=== PATIENT | female | born 1945 | race Caucasian/White ===

== ENCOUNTER 2016-12-15 06:26 | Inpatient (IN) ==
--- NOTE | 2016-12-14 16:00 | Discharge Summary ---
<Alexandra Howell - Last Filed: 12/14/16 16:04> Date of Encounter: 12/14/16 - Discharge Diagnosis (1) Arthritis of left knee Priority: Primary Status: Chronic (2) Hypertension Priority: Secondary Status: Chronic Qualifiers: Hypertension type: essential hypertension Qualified Code(s): I10 - Essential (primary) hypertension (3) History of CVA (cerebrovascular accident) Priority: Secondary Status: Chronic - Discharge Medications Home Medications: Aspirin [Lo-Dose Aspirin EC] 81 mg PO HS 12/15/16 [History] Enoxaparin [Lovenox] 30 mg SQ BID #10 syringe 12/15/16 [Rx] HYDROcodone/Acet 7.5/325 mg [[place] 7.5-325 mg] 1 tab PO Q6H PRN 12/15/16 [ History] Lisinopril/Hydrochlorothiazide [Zestoretic 20-25 mg Tablet] 1 each PO DAILY [History] OxyCODONE Immed Rel [Roxicodone 5 MG] 5 - 10 mg PO Q6HR PRN #40 tablet 12/15/16 [Rx] Simvastatin [Zocor] 40 mg PO HS 12/15/16 [History] Warfarin [Coumadin] 2.5 mg PO Q48H 12/15/16 [History] Warfarin [Coumadin] 5 mg PO Q48H 12/15/16 [History] Allergies/Adverse Reactions: Allergies Sulfa (Sulfonamide Antibiotics) Allergy (Verified 12/16/16 02:39) Rash egg Adverse Reaction (Verified 12/15/16 07:33) Vomiting Primary care physician: Anne Marie Benz MD - Patient Status Disposition: Home, Self-Care Condition: Good - Discharge Instructions Follow Up With: Anne Marie Benz MD [Primary Care Provider] - Alexandra Howell PAC [Physician Application Development Intern] - 12/28/16 3:00 pm - Hospital Course Hospital course: Ms. Covarrubias is a 71 year old female - Time Spent with Patient Total time spent providing and/or coordinating discharge services: <Mayte Pérez - Last Filed: 12/15/16 08:01> Date of Encounter: 12/15/16 Primary care physician: Anne Marie Benz MD - Hospital Course Hospital course: Ms. Covarrubias is a 71 year old female - Time Spent with Patient Total time spent providing and/or coordinating discharge services: <Jefferson Giron - Last Filed: 12/16/16 08:19> Date of Encounter: 12/16/16 Time of Encounter: 08:18 - Discharge Diagnosis (1) Arthritis of left knee Priority: Primary Status: Chronic (2) Hypertension Priority: Secondary Status: Chronic Qualifiers: Hypertension type: essential hypertension Qualified Code(s): I10 - Essential (primary) hypertension (3) History of CVA (cerebrovascular accident) Priority: Secondary Status: Chronic (4) Acute blood loss anemia Status: Acute (5) Status post total knee replacement, left Priority: Primary Status: Acute (6) Current use of intermediate accountant anticoagulation Priority: Primary Status: Chronic Primary care physician: Anne Marie Benz MD - Patient Status Functional capacity at discharge: uses cane/walker Overall status at discharge: patient is progressing back to baseline - Hospital Course Hospital course: Ms. Covarrubias is a 71 year old female does first left total knee replacement. Patient with a hematocrit of 23 receiving 2 units of packed red blood cells. Patient received physical therapy will be discharged home with a plan for outpatient physical therapy aspirin DVT prophylaxis on discharge. - Time Spent with Patient Total time spent providing and/or coordinating discharge services:
[2016-12-15] MEDS ORDERED: CeFAZolin Pre 2,000 MG/100 ML 2,000 MG/100 ML BAG IVPB ONE (07:08)
[2016-12-15] MEDS ORDERED: Albuterol 2.5 MG/3 ML NEBULIZER IH ONE (07:08)
[2016-12-15] MEDS ORDERED: Ringers Solution, Lactated 1,000 ML IVC SCH (07:15)
--- NOTE | 2016-12-15 07:22 | Anesthesia Evaluation PreOp ---
Date of Encounter: 12/15/16 Time of Encounter: 07:14 - Past History Planned Operation: l tka Cardiac History: HTN, Hyperlipidemia Pulmonary History: Snore SYSTEM SALES CONSULTANT History: TIA (l side weakness, 3 years ago, resolved) Other Medical History: Denies Any Significant HX Anesthesia History: No Prior Anesthetic Complications, Past Anesthesia ( cholecyst, tahbso, feet, l knee, r ctr, bilat cataract) Alcohol Use: rarely Drug use: none Medications and Allergies Ibuprofen [Motrin] 800 mg PO Q8HR #30 tablet 12/09/15 [Rx] Allergies Sulfa (Sulfonamide Antibiotics) Allergy (Unverified 12/08/16 15:16) Itching - Meds/Allergy Pre-op Review Medications Reviewed: Yes (coumadin off x 5 days) Allergies Reviewed: Yes Beta Blockers on Current Med List: No Anesthesia Results - Labs Laboratory Tests 12/08/16 12/08/16 12/08/16 15:05 15:05 15:05 Hgb 12.6 Hct 37.4 Plt Count 180 PT 15.3 H D INR 1.4 D APTT 32.3 Sodium 140 Potassium 4.0 Creatinine 1.10 - Imaging EKG: report reviewed (sr/lvh) Anesthesia Exam O2 Sat Height 1.52 m Weight 69.853 kg Height: 1.52 Weight: 69 NPO (# of Hours): >8 - HEENT Pupil (Motor): Pupils equal, EOMI Mallampati: II Teeth: Edentulous Oral Opening: Greater than 3 - SYSTEM SALES CONSULTANT LOC: Oriented SYSTEM SALES CONSULTANT Motor: Normal RUE, Normal LUE, Normal RLE, Normal LLE, Normal Face SYSTEM SALES CONSULTANT Sensory: Normal: RUE, LUE, RLE, LLE, Face - Cardiac Rhythm: Regular Murmur: None - Pulmonary Breath Sounds: bilateral Clear Respiratory Effort: Symmetrical Anesthesia Assess/Plan ASA Score: 3 Modified Satnam Scale for Level of Consciousness: Cooperative, oriented, and tranquil Anesthetic Plan: General, Regional Monitoring Plan: Standard Monitors Recovery Plan: PACU
[2016-12-15] MEDS ORDERED: Scopolamine Patch 1.5 MG PATCH.TD72 TD ONE (07:23)
[2016-12-15] MEDS ORDERED: *HR* Propofol 200 MG/20 ML VIAL IVP ONE (07:30)
[2016-12-15] MEDS ORDERED: *HR* Midazolam HCl 2 MG/2 ML VIAL ONE (07:30)
[2016-12-15] MEDS ORDERED: *HR* FentaNYL (PF) 100 MCG/2 ML VIAL ONE (07:30)
[2016-12-15] MEDS ORDERED: CloNIDine Patch 0.1 MG PATCH (WEEKLY) TD ONE (07:30)
[2016-12-15] MEDS ORDERED: *HR* Phenylephrine 10 MG/ML VIAL ONE (07:35)
[2016-12-15] MEDS ORDERED: Ondansetron 4 MG/2 ML VIAL ONE (07:35)
[2016-12-15] MEDS ORDERED: Dexamethasone 4 MG/ML VIAL ONE (07:35)
[2016-12-15] MEDS ORDERED: ROPIVACAINE HCL/PF 0.5% 30 ML VIAL ONE (07:53)
[2016-12-15] MEDS ORDERED: Bupivacaine/Clonidine Syringe 1 EACH SYRINGE ONE (07:55)
--- NOTE | 2016-12-15 08:06 | History & Physical Report ---
Date of Encounter: 12/15/16 Time of Encounter: 08:06 24 Hour HP Update - Instructions Instructions: If the History and Physical is less than 30 days old and was completed prior to A.M. admission and or procedure and has NOT been updated on calendar day of procedure please complete this update prior to performing procedure. - Update Patient reports changes in Medical Condition: No Changes in examination, assessment, or condition: No Changes in Medication: No Preop tests/diagnostics Reviewed: Yes Surgery Remains Indicated: Yes Consent for Planned Operative Procedure(s) Verified: Yes - Pre-Operative Checklist Preoperative Checklist Indicated: No Prophylactic Antibiotic Ordered: Yes Is VTE Prophylaxis Indicated?: Yes
[2016-12-15] MEDS ORDERED: Ketamine *HR* 500 MG/10 ML MDV ONE (08:27)
--- NOTE | 2016-12-15 08:30 | Anesthesia Procedures ---
Date of Encounter: 12/15/16 Time of Encounter: 08:28 Procedures: Anesthesia - Nerve Block Procedure Date: 12/15/16 Time: 08:28 Allergies/Adv Reactions: sulfa Pre-op Diagnosis: l knee arthritis Surgical Procedure: L TKA Checklist: Correct Patient Identifier Correct side: Left Blood Thinner: Yes Monitor Applied: EKG, BP, Pulse Oximetry Supplemental Oxygen via Nasal Cannula (L/min): 3 Sedation: Versed (mg): 2 Sedation: Fentanyl (mcg): 100 Indication: Post Op Analgesia (req Dr Giron) Pre-op Neuro Deficits: No Block Type: Femoral, Other (IPAK) Catheter placed: No Sterile Technique: Yes Ultrasound used: Yes Anatomy identified: Yes Visual spread of Local: Yes Neuro Stimulation: Yes Nerve Stimulator Range: 0.2 - 0.4 mA Blood on Needle Aspiration: No Smooth Injection of Local: Yes Pain with Injection of Local: No Prep: Chlorhexadine Needle: 22 x 50 mm Stimuplex, 21 x 100 mm Stimuplex Local: 0.25% Bupivicaine w/Clonidine 20 mcg/cc (IPAK), Ropivacaine (0.5 300 Fem) Volume (cc): 50 total Number of Attempts: 1 Complications: None/effective block Vitals: Vital Signs/O2 Sat, Most Current Temp Pulse Resp BP Pulse Ox 98.9 F 67 16 146/81 100 12/15/16 07:28 12/15/16 08:15 12/15/16 08:15 12/15/16 08:15 12/15/16 08:15 Comments: aseptic, tolerated well, effective
[2016-12-15] MEDS ORDERED: Ondansetron 4 MG/2 ML VIAL IVP PRN ×2 (08:57→11:05)
[2016-12-15] MEDS ORDERED: Ketorolac 30 MG/ML VIAL ONE (09:13)
--- NOTE | 2016-12-15 09:30 | Orthopedic Operative Note ---
Date of procedure: 12/15/16 Pre-op diagnosis: Left knee arthritis Post-op diagnosis: same Procedure: Procedure: Left Total knee replacement Estimated blood loss: 200 cc Hardware: Metal and polyethylene replacement. Arthrex Femur: 4 Tibia: 4 PS insert: 10 Patella: 34 Exam Under anesthesia: Full flexion and extension no instability Procedural Notes: Grade 4 arthritic changes medial compartment grade 3 arthritic changes patellofemoral joint. Operative procedure: The patient was brought to the operating room and placed on the operating room table. After general anesthesia was administered the operative knee was examined. Findings were noted in the exam under anesthesia. The operative extremity was prepped and draped in sterile surgical fashion. The patient received IV antibiotics prior to skin incision. A standard midline incision was made centered over the patella. The incision was made through the skin and subcutaneous tissue. A medial parapatellar tendon approach was performed. Care was taken to preserve tissue along the medial aspect of the patella. And to protect the patella tendon. The deep MCL was released off the medial tibia. The infra patella fat pad was excised. Knee was brought into flexion. Patient noted to have grade 4 arthritic changes medial compartment and grade 3 arthritic changes patellofemoral joint. The entry hole was made for the intramedullary femoral guide. The guide was seated in 6 degrees of valgus. Anterior cut was made followed by the distal cut. The ACL the PCL the medial and the lateral menisci were excised. The tibia was subluxed forward. The entry hole was made for the intramedullary tibial guide. Guide was seated to resect 2 mm off the more abnormal side. The knee was brought into flexion the distal femur was sized to a 4. The femoral guide was seated, the anterior cut was made followed by the posterior condylar cut, followed by the chamfer cuts. The finishing guide was seated the box cut was made and the lug holes were drilled. The tibia was sized to a 4, the tibial tray was seated and prepared with the large drill followed by the fin cutter. Trial reduction revealed full extension no varus valgus instability with the appropriate 10 PS Pretty. The patella was everted and cut was made at the level of the insertion of the quadriceps and patella tendon. The patella was sized to a 34 the guide was seated and the lug holes are drilled. Trial reduction revealed excellent patella tracking. All trial components were removed all bony surfaces were irrigated. The tibia was cemented first followed by the femur. The 10 PS Pretty was seated and the knee was brought into full extension. The patella was cemented and held in place with the patellar holding clamp. After the cement had hardened, the knee sat for 2 minutes with a Betadine saline solution. The knee was then irrigated out with 2 L of pulse irrigation. Mayte Landeros the PA closed the knee. The extensor mechanism was closed with #2 FiberWire suture and #2 PDS suture. The subcutaneous tissue was then irrigated and closed deep with #1 PDS suture superficially with 0 PDS suture and skin was closed with skin abran. The patient was then placed in a sterile dressing and a postoperative brace extubated and transferred to recovery room in stable condition. Anesthesia: VICK Surgeon: Jefferson Giron [employer] Representative: Mayte Pérez Condition: stable Disposition: PACU
[2016-12-15] MEDS: *HR* HYDROmorphone (PF) 1 MG/ML SYRINGE IVP PRN ×3 (09:56→13:31)
[2016-12-15 10:15] LABS: Hematocrit 31.2 % (35.3-44.9)
[2016-12-15 10:18] LABS: Hemoglobin 10.7 g/dL (11.5-15.4)
--- NOTE | 2016-12-15 10:28 | Anesthesia Evaluation Post Op ---
Date of Encounter: 12/15/16 Time of Encounter: 10:27 - Vital Signs Vital Signs: Last Vital Signs Temp 97.0 F L 12/15/16 09:52 Pulse 54 12/15/16 09:52 Resp 12 12/15/16 09:52 BP 143/75 12/15/16 09:52 Pulse Ox 100 12/15/16 09:52 - Lungs Lungs: Clear Ascult./Percussion - Airway Airway: Non-obstructed - Cardiovascular Regular Rate - Mental Status Mental Status: Alert & Oriented, Answers Appropriately - Pain Pain Scale: 4 - Nausea Vomiting Nausea Vomiting: Not Present - Hydration Hydration: Ice chips - Discharge PostOp Status: Transfer Patient to floor
[2016-12-15] MEDS ORDERED: Temazepam 15 MG CAPSULE PO PRN (11:05)
[2016-12-15] MEDS ORDERED: Sennosides 8.6 MG TABLET PO PRN (11:05)
[2016-12-15] MEDS ORDERED: *HR* OxyCODONE Immed Rel 5 MG TABLET PO PRN ×2 (11:05)
[2016-12-15] MEDS ORDERED: MOM Conc 10 ML UD.LIQ PO PRN (11:05)
[2016-12-15] MEDS ORDERED: Naloxone 0.4 MG/ML INJ IVP PRN (11:05)
[2016-12-15] MEDS: Ringers Solution, Lactated 1,000 ML IVC SCH ×2 (12:04→22:06)
[2016-12-15] MEDS: ceFAZolin 2,000 MG in D5% in Water 100 ML IVPB SCH ×2 (12:05→18:04)
--- NOTE | 2016-12-15 14:12 | Physician Discharge Referral ---
Home Health/Hosp Referral Info Transfer to: Home Health - Diagnosis (1) Status post total knee replacement, left Priority: Primary Status: Acute (2) Arthritis of left knee Priority: Primary Status: Chronic (3) Current use of termite treater helper anticoagulation Priority: Secondary Status: Chronic (4) Hypertension Priority: Secondary Status: Chronic (5) History of CVA (cerebrovascular accident) Priority: Secondary Status: Chronic - Respiratory Orders None Smoking Cessation: Smoking cessation has been advised. For more information, call the [place] Tobacco Quit Line at 1-933-FGVR-NOW. - Dressing/Wound Care Site: Left Knee: Opsite dressing, leave intact until first post-operative visit. If dressing becomes >50% saturated, contact office, remove dressing and place appropriate dressing in its place. Do not allow for dressing to get wet. - Diet/Nutrition Diet/Nutrition Orders: Regular - Activity Activity Orders: Up ad mike - Services Needed Following services are medically necessary services: Nursing, Physical Therapy, Occupational Therapy Other Treatments: Knee precautions x 6 weeks. WBAT. Apply cold therapy wrap 3-6x/day for 20 minutes at a time. Encourage ambulation. Elevate lower extremity. - Transfer Medications Home Medications: Aspirin [Lo-Dose Aspirin EC] 81 mg PO HS 12/15/16 [History] Enoxaparin [Lovenox] 30 mg SQ BID #10 syringe 12/15/16 [Rx] HYDROcodone/Acet 7.5/325 mg [[place] 7.5-325 mg] 1 tab PO Q6H PRN 12/15/16 [ History] Lisinopril/Hydrochlorothiazide [Zestoretic 20-25 mg Tablet] 1 each PO DAILY [History] OxyCODONE Immed Rel [Roxicodone 5 MG] 5 - 10 mg PO Q6HR PRN #40 tablet 12/15/16 [Rx] Simvastatin [Zocor] 40 mg PO HS 12/15/16 [History] Warfarin [Coumadin] 2.5 mg PO Q48H 12/15/16 [History] Warfarin [Coumadin] 5 mg PO Q48H 12/15/16 [History] Allergies/Adverse Reactions: Allergies Sulfa (Sulfonamide Antibiotics) Allergy (Unverified 12/15/16 07:33) Rash egg Adverse Reaction (Verified 12/15/16 07:33) Vomiting Certification: Further, I certify that my clinical findings support that this patient is homebound (i.e. absences from home require considerable and taxing effort and are for medical reasons or presybeterian services or infrequently or short duration when for other reasons) because: Homebound Reason: Post-surgery restriction and or conditions limit ability to leave home Attestation: My signature below is to certify that this patient is under my care and that I, or nurse practitioner, or a physician's assistant track coach working with me, has a face-to -face encounter with this patient.
[2016-12-15] MEDS: *HR* Enoxaparin 30 MG/0.3 ML SYRINGE SQ SCH (17:11)
[2016-12-15] MEDS: *HR* Promethazine 25 MG/ML VIAL IVP PRN (17:11)
[2016-12-15] MEDS ORDERED: *HR* Enoxaparin 30 MG/0.3 ML SYRINGE SQ SCH (18:00)
[2016-12-15] MEDS: *HR* HYDROcodone/Acet 5/325 mg TABLET PO PRN (21:09)
[2016-12-15] MEDS ORDERED: *HR* HYDROcodone/Acet 5/325 mg TABLET PO ONE (22:07)
[2016-12-16] MEDS: *HR* HYDROcodone/Acet 5/325 mg TABLET PO PRN ×5 (04:55→22:05)
[2016-12-16] MEDS: *HR* Enoxaparin 30 MG/0.3 ML SYRINGE SQ SCH ×2 (04:56→16:38)
[2016-12-16 05:42] LABS: Hematocrit 23.3 % (35.3-44.9)
[2016-12-16 05:43] LABS: Hemoglobin 8.2 g/dL (11.5-15.4)
[2016-12-16 05:55] LABS: BUN/Creatinine Ratio 25 (6-26); Blood Urea Nitrogen 26 mg/dL (7-20); Calcium 8.4 mg/dL (8.6-10.8); Carbon Dioxide 25 mEq/L (19-29); Chloride 103 mEq/L (98-109); Glucose 104 mg/dL (70-99); Osmolality,Calculated 289 (280-300); Potassium 3.7 mEq/L (3.5-4.5); Sodium 137 mEq/L (136-145); eGFR For African Americans > 60 (> 60); eGFR For Non-African Americans 52 (> 60)
[2016-12-16] MEDS ORDERED: Furosemide 20 MG/2 ML VIAL IVP ONE (06:03)
--- NOTE | 2016-12-16 08:20 | Orthopedics Progress Note ---
Date of Encounter: 12/16/16 Time of Encounter: 08:20 - Assessment and Plan (1) Arthritis of left knee Current Visit: Yes Status: Chronic (2) Hypertension Current Visit: Yes Status: Chronic Qualifiers: Hypertension type: essential hypertension Qualified Code(s): I10 - Essential (primary) hypertension (3) History of CVA (cerebrovascular accident) Current Visit: Yes Status: Chronic (4) Acute blood loss anemia Current Visit: Yes Status: Acute (5) Status post total knee replacement, left Current Visit: Yes Status: Acute (6) Current use of custodial anticoagulation Current Visit: Yes Status: Chronic Subjective Interval history: Patient was seen this morning doing well without complaints. Afebrile vital signs stable. Operative extremity: Neurovascularly intact Dressing clean dry and intact Calves nontender Assessment and plan: Continue with postoperative care Hematocrit 23 transfuse 2 units plan for patient to be discharged home today. Objective Vital signs: Vital Signs Temp Pulse Resp BP Pulse Ox 12/16/16 07:27 99.2 F 62 16 108/64 97 12/16/16 04:28 99.1 F 82 16 109/61 96 12/15/16 22:59 98.3 F 69 16 110/65 95 12/15/16 20:05 95 12/15/16 19:53 98.7 F 73 16 111/69 97 12/15/16 18:04 96 12/15/16 13:51 97.6 F 63 15 122/71 99 12/15/16 13:03 97.4 F L 66 16 126/74 98 12/15/16 11:59 97.4 F L 63 15 102/68 98 12/15/16 11:43 97.0 F L 64 18 96 12/15/16 11:38 97.4 F L 63 12 101/69 97 12/15/16 11:36 97.4 F L 63 12 101/69 97 12/15/16 11:00 97.4 F L 62 12 107/60 97 12/15/16 10:32 97.1 F L 64 14 111/63 97 12/15/16 10:22 97.1 F L 61 13 100/63 100 12/15/16 10:12 60 14 96/63 99 12/15/16 10:02 60 13 109/63 99 12/15/16 09:52 97.0 F L 54 12 143/75 100 06/28/17 08:39 62 16 123/63 100 Intake and Output 12/15/16 12/16/16 12/16/16 23:59 07:59 15:59 Intake Total 1150 / 1150 200 / 200 Output Total 200 / 200 300 / 300 Balance 950 / 950 -100 / -100 Intake: IV Fluids 1100 / 1100 Lactated Ringers 1,000 ML 1000 / 1000 @ 75 mls/hr IVC .[id number] NITHIN Rx#:[id number] Ancef 2,000 MG In 100 / 100 Dextrose 5% 100 ML @ 200 mls/hr IVPB Q8HR NITHIN Rx#: [id number] Oral 50 / 50 200 / 200 Output: Urine 300 / 300 Emesis 200 / 200 Other: Weight 73.51 kg Patient Weight 12/16/16 23:59 Weight 73.51 kg - Labs CBC & BMP: 12/16/16 05:27 12/16/16 05:27 Labs: Abnormal lab results Hgb 8.2 g/dL (11.5-15.4) L D 12/16/16 05:27 Hct 23.3 % (35.3-44.9) L 12/16/16 05:27 BUN 26 mg/dL (7-20) H 12/16/16 05:27 Est GFR (Non-Af Amer) 52 (> 60) L 12/16/16 05:27 Glucose 104 mg/dL (70-99) H 12/16/16 05:27 Calcium 8.4 mg/dL (8.6-10.8) L 12/16/16 05:27 - VTE Documentation of Mechanical Device: Venous foot pump, device Consult Discharge Plan - Plan Referrals: Alexandra Howell PAC [Physician Hauling Contractor] - 12/28/16 3:00 pm Anne Marie Benz MD [Primary Care Provider] -
[2016-12-16] MEDS ORDERED: 0.9 % Sodium Chloride 500 ML ONE (09:18)
--- NOTE | 2016-12-16 12:25 | Physician Discharge Referral ---
ExtendedCare Referral Info Transfer To: ECF Provider in Charge after Transfer: PCP Institutional Level of Care: Skilled - Diagnosis (1) Status post total knee replacement, left Priority: Primary Status: Acute (2) Arthritis of left knee Priority: Primary Status: Chronic (3) Current use of usp anticoagulation Priority: Secondary Status: Chronic (4) Hypertension Priority: Secondary Status: Chronic (5) History of CVA (cerebrovascular accident) Priority: Secondary Status: Chronic Expected Duration of Placement: 30 days Prognosis: Good Aware of Diagnosis: Patient Aware of Prognosis: Patient - Transfer Medications Prescriptions: HYDROcodone/Acet 5/325 mg [[place] 5-325 mg] 1 - 2 tab PO Q6H PRN #40 tablet PRN Reason: Pain Home Medications: Enoxaparin [Lovenox] 30 mg SQ BID #10 syringe 12/15/16 [Rx] Lisinopril/Hydrochlorothiazide [Zestoretic 20-25 mg Tablet] 1 each PO DAILY [History] Simvastatin [Zocor] 40 mg PO HS 12/15/16 [History] Warfarin [Coumadin] 2.5 mg PO Q48H 12/15/16 [History] Warfarin [Coumadin] 5 mg PO Q48H 12/15/16 [History] HYDROcodone/Acet 5/325 mg [[place] 5-325 mg] 1 - 2 tab PO Q6H PRN #40 tablet 12/16 [Rx] Allergies/Adverse Reactions: Allergies Sulfa (Sulfonamide Antibiotics) Allergy (Verified 12/16/16 02:39) Rash egg Adverse Reaction (Verified 12/15/16 07:33) Vomiting - Respiratory Orders None Smoking Cessation: Smoking cessation has been advised. For more information, call the [place] Tobacco Quit Line at 1-900-QNRA-NOW. - Lab Orders Lab Orders: CBC - Ancillary Orders May use pressure relief devices daily prn, May go on LANA w/family/respon constitution party w /meds at nurse discretion PRN, May consult with Dentist, Syrup Filterer, Biomedical Engineering Director PRN - History and Physical History/Physical reviewed & approved w/add comments: POD#1 - Patient received blood transfusion - 2 units. - Mobility Orders Ambulate - Rehabiliation Orders Rehab Potential: Good Rehab Orders: ROM Exercises, Evaluation for Physical Therapy, Evaluation for Occupational Therapy Other: Shoulder Precautions x 6 weeks. Apply cold therapy wrap 3-6x/day for 20 minutes at a time. Encourage ambulation throughout the day and incentive spirometer 10x/hour. Elevate affected extremity above heart as tolerated. NWB to affected upper extremity. Will remove brace at first post-operative appointment. OK to remove during PT/OT - Treatments List/Other: Opsite dressing, leave intact until first post-operative visit. If dressing becomes >50% saturated, contact office, remove dressing and place appropriate dressing in its place. Do not allow for dressing to get wet. Erick in place, plan to remove at post-operative day #14-16. - Diet Orders Regular CERTIFICATION: I certify that the transfer of the above named patient to an Extended Care Facility is necessary for the continuing treatment of the diagnosis listed. The above information is true and accurate reflection of patient's current condition. Confidential - Redisclosure prohibited without a patient's written consent.
[2016-12-16] MEDS ORDERED: Furosemide 20 MG/2 ML VIAL IVP PRN (12:30)
[2016-12-16] MEDS: *HR* HYDROmorphone (PF) 1 MG/ML SYRINGE IVP PRN ×2 (14:02→19:41)
[2016-12-16] MEDS: *HR* Promethazine 25 MG/ML VIAL IVP PRN (22:15)
[2016-12-17 01:51] LABS: Hemoglobin 11.1 g/dL (11.5-15.4)
[2016-12-17 02:02] LABS: BUN/Creatinine Ratio 24 (6-26); Blood Urea Nitrogen 24 mg/dL (7-20); Carbon Dioxide 29 mEq/L (19-29); Chloride 99 mEq/L (98-109); Glucose 116 mg/dL (70-99); Osmolality,Calculated 287 (280-300); Sodium 136 mEq/L (136-145); eGFR For African Americans > 60 (> 60); eGFR For Non-African Americans 54 (> 60)
[2016-12-17 02:04] LABS: Potassium 3.4 mEq/L (3.5-4.5)
[2016-12-17] MEDS: *HR* HYDROcodone/Acet 5/325 mg TABLET PO PRN ×3 (03:32→14:50)
[2016-12-17] MEDS: *HR* Enoxaparin 30 MG/0.3 ML SYRINGE SQ SCH (06:45)
[2016-12-17] MEDS: *HR* HYDROmorphone (PF) 1 MG/ML SYRINGE IVP PRN (06:46)
[2016-12-17 07:03] VITALS: BP 162/83
--- NOTE | 2016-12-17 13:00 | Orthopedics Progress Note ---
Date of Encounter: 12/17/16 Time of Encounter: 08:15 - Assessment and Plan (1) Status post total knee replacement, left Current Visit: Yes Status: Acute See Subjective* (2) Arthritis of left knee Current Visit: Yes Status: Chronic (3) Current use of terminal gauger anticoagulation Current Visit: Yes Status: Chronic (4) Hypertension Current Visit: Yes Status: Chronic Qualifiers: Hypertension type: essential hypertension Qualified Code(s): I10 - Essential (primary) hypertension (5) History of CVA (cerebrovascular accident) Current Visit: Yes Status: Chronic Subjective Principal diagnosis: Left TKR Interval history: POD#2 - LEFT TKR Patient was seen this morning doing well without complaints. Pain improved from yesterday. Afebrile, vital signs stable. On O2 at night due to low O2 saturation, history of COPD. Wean back to room air. Operative extremity: Neurovascularly intact Dressing clean dry and intact Calves nontender Assessment and plan: Continue with postoperative care H/H stable. Plan for D/C to [facility] once approved. Objective Vital signs: Vital Signs Temp Pulse Resp BP Pulse Ox 12/17/16 07:00 98.7 F 71 20 162/83 94 12/17/16 00:42 98.4 F 75 19 162/94 100 12/16/16 19:10 99.1 F 73 15 135/80 95 12/16/16 16:40 98.8 F 72 16 150/70 94 12/16/16 14:26 98.8 F 67 14 119/77 98 12/16/16 13:54 98.0 F 76 16 122/75 98 Intake and Output 12/16/16 12/17/16 12/17/16 23:59 07:59 15:59 Intake Total 350 / 350 250 / 250 Output Total 400 / 400 635 / 635 Balance -50 / -50 -385 / -385 Intake: Oral 50 / 50 250 / 250 Blood Product 300 / 300 Rbcs Leuko Poor As-3 2nd 300 / 300 Unit [id number] Output: Urine 400 / 400 635 / 635 Incision: clean and dry - Labs CBC & BMP: 12/17/16 01:38 12/17/16 01:38 Labs: Abnormal lab results Hgb 11.1 g/dL (11.5-15.4) L D 12/17/16 01:38 Hct 32.0 % (35.3-44.9) L 12/17/16 01:38 Potassium 3.4 mEq/L (3.5-4.5) L 12/17/16 01:38 BUN 24 mg/dL (7-20) H 12/17/16 01:38 Est GFR (Non-Af Amer) 54 (> 60) L 12/17/16 01:38 Glucose 116 mg/dL (70-99) H 12/17/16 01:38 - VTE Documentation of Mechanical Device: Venous foot pump, device Consult Discharge Plan - Plan Referrals: Alexandra Howell PAC [Physician Calibration Tester] - 12/28/16 3:00 pm Anne Marie Benz MD [Primary Care Provider] - Prescriptions: HYDROcodone/Acet 5/325 mg [[place] 5-325 mg] 1 - 2 tab PO Q6H PRN #40 tablet PRN Reason: Pain
== END 2016-12-17 15:21 | disposition home or self-care (01) | DRG 470 ==
LOC: SAMDAY 06:26 → 3NENU 11:03
PROVIDERS: ADMIT Orthopaedic Surgery; ATTEND Orthopaedic Surgery